=== PATIENT | male | born 1955 | race Hispanic/Latino ===

== ENCOUNTER 2018-10-07 07:48 | Observation (INO) | payer BC, OTHER ==
[2018-10-07] MEDS ORDERED: Aspirin 325 MG TAB ONE (08:20)
[2018-10-07] MEDS ORDERED: Nitroglycerin 0.4 MG TAB 1 EACH ONE (08:20)
[2018-10-07 08:24] LABS: #Eosinphils 0.2 thou/uL (0.0-0.7); #Lymphocytes 1.8 thou/uL (1.20-3.40); #Monocytes 0.6 thou/uL (0.11-0.59); #Neutrophils 3.5 thou/uL (1.40-6.50); %Basophils 0.8 % (0.0-1.0); %Eosinophils 3.6 % (0.0-10.0); %Lymphocytes 28.9 % (21.0-51.0); %Monocytes 10.3 % (0.0-10.0); %Neutrophils 56.4 % (42.0-75.0); Hemoglobin 15.8 g/dL (14.0-18.0); Mean Corpuscular HGB CONC 35.5 g/dL (32.0-36.0); Mean Corpuscular Hemoglobin 32.1 pg (27.0-31.0); Mean Corpuscular Volume 90.5 fL (78.0-98.0); Mean Platelet Volume 7.4 fL (7.4-10.4); Platelet Count 186 thou/uL (130-400); RBC Distribution Width 11.9 % (11.5-14.5); Red Blood Cell (RBC) Count 4.91 mill/uL (4.70-6.10); White Blood Cell (WBC) Count 6.1 thou/uL (4.8-10.8)
[2018-10-07 08:45] LABS: ALT (SGPT) 26 U/L (8-55); AST (SGOT) 16 U/L (5-34); Albumin 4.1 g/dL (3.4-4.8); Alkaline Phosphatase 78 U/L (40-150); Anion Gap 14 mmol/L (10-20); BUN (Urea Nitrogen) 13 mg/dL (8.4-25.7); Bilirubin, Total 1.1 mg/dL (0.2-1.2); CK (CPK) 227 U/L (30-200); Calc. Creatinine Clearance 0 mL/min (70-130); Calcium 9.2 mg/dL (7.8-10.44); Carbon Dioxide 23 mmol/L (23-31); Chloride 105 mmol/L (98-107); Estimated GFR-MDRD 73; Globulin 2.9 g/dL (2.4-3.5); Glucose 235 mg/dL (80-115); Lipase 41 U/L (8-78); Potassium 3.9 mmol/L (3.5-5.1); Sodium 138 mmol/L (136-145)
--- NOTE | 2018-10-07 08:58 | RAD ---
PORTABLE CHEST: HISTORY: Chest pain. COMPARISON: 06/18/2013. FINDINGS: The lungs are clear. Heart and mediastinum unremarkable. Vascular markings normal. IMPRESSION: No acute finding. POS: [facility]
[2018-10-07 12:44] LABS: Troponin I Less than 0.010 ng/mL (< 0.028)
[2018-10-07] MEDS ORDERED: Acetaminophen 500 MG TAB ONE (14:55)
[2018-10-07] MEDS ORDERED: Ketorolac Tromethamine 30 MG/ML VIAL ONE (15:26)
[2018-10-07 15:30] LABS: Troponin I Less than 0.010 ng/mL (< 0.028)
[2018-10-07] MEDS ORDERED: Acetaminophen 325 MG TAB PO PRN (16:47)
--- NOTE | 2018-10-07 17:21 | HP ---
CHIEF COMPLAINT: Chest pain, neck pain, and numbness in his left hand. HISTORY OF PRESENT ILLNESS: The patient is a 63-year-old male, who had sudden onset of chest pain which was radiating to his neck and down to his left upper extremity to the hand. He had some shortness of breath when this happened. He denied any clammy skin. He denied any nausea, vomiting, but he noticed that he vomited couple of times the day before this happened. He did not have any diarrhea or abdominal pain. There was no any cough. Apparently, he was seen in Dr. Dimas's office after he had something which was called TIA, at least what he knows at [facility] and at Dr. Dimas's office he had echocardiogram done and he was supposed to have the stress test done upcoming Friday, but he got sick and came to the emergency room for further evaluation of his problem. His PCP is Dr. Amezcua and surrogate decision maker is the patient's . PAST MEDICAL HISTORY: Positive for; 1. Hypertension. 2. Diabetes mellitus. 3. Hypothyroidism. 4. Questionable TIA. PAST SURGICAL HISTORY: None. MEDICATIONS: 1. Metformin. 2. Plavix. 3. Levothyroxine. 4. Aspirin. 5. Vascepa. 6. Atorvastatin. 7. Losartan. FAMILY HISTORY: Father had sepsis and at the age of 88. Mother is still alive. She has liver problems and she had CVA. SOCIAL HISTORY: He drinks beer 6 pack over the weekend. He smokes few cigarettes per week. He does not use any illicit drugs. ALLERGIES: HE IS NOT ALLERGIC TO ANYTHING. NOW HE COMPLAINS ABOUT SOME HEADACHE AND APPARENTLY HIS BLOOD PRESSURE WENT DOWN SIGNIFICANTLY AFTER HE RECEIVED TWO NITROGLYCERINS IN THE EMERGENCY ROOM. REVIEW OF SYSTEMS: He has occasional headaches on and off. He has no other complaints except for those which are mentioned in the HPI. PHYSICAL EXAMINATION: VITAL SIGNS: Blood pressure is 111/77, pulse is 68, respiratory rate is 16, O2 saturation is 95% on room air. HEENT: His head is atraumatic and normocephalic. Eyes are PERRLA. Sclerae are nonicteric. Oral mucosa is moist. NECK: Supple. LUNGS: Clear. HEART: S1 and S2 normal. No S3. No S4. No any murmur. ABDOMEN: Soft, nontender, nondistended. EXTREMITIES: No clubbing, cyanosis, or edema. NEUROLOGICAL: He is alert and oriented x4. There is no any motor or sensory deficits. Cranial nerves are intact grossly. SKIN: No rash or erythema. LABORATORY DATA: Normal CBC. Normal chemistry except for glucose which is 235 and Two levels of troponin I within normal limits. The rest of chemistry is within home. DIAGNOSTIC DATA: EKG personally reviewed by me showed a normal saline. No ischemia. Chest x-ray, no acute cardiopulmonary changes. IMPRESSION: 1. Chest pain, rule out acute coronary syndrome. 2. Diabetes mellitus. 3. Hypertension. 4. Questionable transient ischemic attack recently. 5. Hyperlipidemia. PLAN: Admission for observation. Condition is fair. Activity, bedrest and bathroom privileges. IV Hep-Lock. Aspirin 325 mg once a day. Continue his home medications. Exercise Cardiolite stress test and obtain echocardiogram results from Dr. Dimas since this was just done recently. We will start him on DVT prophylaxis with SCDs and Lovenox. Job ID: [id number]
[2018-10-07 17:53] VITALS: BMI 33.5
[2018-10-07] MEDS ORDERED: Melatonin 3 MG TAB PO PRN (19:41)
[2018-10-07] MEDS ORDERED: Calcium Carbonate 500 MG ChewTAB PO PRN (19:41)
[2018-10-08 05:41] LABS: #Eosinphils 0.2 thou/uL (0.0-0.7); #Monocytes 0.5 thou/uL (0.11-0.59); #Neutrophils 2.8 thou/uL (1.40-6.50); %Basophils 0.7 % (0.0-1.0); %Eosinophils 4.1 % (0.0-10.0); %Lymphocytes 36.1 % (21.0-51.0); %Monocytes 8.6 % (0.0-10.0); %Neutrophils 50.6 % (42.0-75.0); Hemoglobin 15.3 g/dL (14.0-18.0); Mean Corpuscular HGB CONC 35.2 g/dL (32.0-36.0); Mean Corpuscular Hemoglobin 32.4 pg (27.0-31.0); Mean Corpuscular Volume 92.3 fL (78.0-98.0); Mean Platelet Volume 7.4 fL (7.4-10.4); Platelet Count 155 thou/uL (130-400); RBC Distribution Width 11.9 % (11.5-14.5); Red Blood Cell (RBC) Count 4.72 mill/uL (4.70-6.10); White Blood Cell (WBC) Count 5.5 thou/uL (4.8-10.8)
[2018-10-08 06:08] LABS: Anion Gap 7 mmol/L (10-20); BUN (Urea Nitrogen) 19 mg/dL (8.4-25.7); Calc. Creatinine Clearance 95 mL/min (70-130); Calcium 9.4 mg/dL (7.8-10.44); Carbon Dioxide 30 mmol/L (23-31); Chloride 106 mmol/L (98-107); Estimated GFR-MDRD 75; Glucose 164 mg/dL (80-115); Potassium 3.8 mmol/L (3.5-5.1); Sodium 139 mmol/L (136-145)
[2018-10-08] MEDS ORDERED: Aspirin 325 MG TAB PO SCH (09:00)
[2018-10-08] MEDS ORDERED: Atorvastatin Calcium 10 MG TAB PO SCH (09:00)
[2018-10-08] MEDS ORDERED: Enoxaparin Sodium 40 MG/0.4 ML SYRINGE SC SCH (09:00)
[2018-10-08] MEDS ORDERED: Clopidogrel Bisulfate 75 MG TAB PO SCH (09:00)
[2018-10-08] MEDS ORDERED: Losartan 25 MG TAB PO SCH (09:00)
[2018-10-08 15:57] VITALS: BP 123/63; TEMP 97.4
--- NOTE | 2018-10-08 16:59 | NM ---
Radionucleotide stress and rest myocardial perfusion scan with CT attenuation correction and SPECT im aging left ventricular wall motion evaluation and ejection fraction. HISTORY: Chest pain. FINDINGS: Mirza protocol. Total test time 7:00. Maximum heart rate 141 bpm. There is heterogeneous up take of radiotracer throughout the left ventricular myocardium on the stress and rest images. No focal perfusion defect or reversibility. QGS analysis of gated SPECT images shows no focal wall motion abnormalities. Left ventricular ejectio n fraction calculated at 60%. IMPRESSION: Normal myocardial perfusion scan. No evidence of ischemia. Normal LVEF.
[2018-10-09] MEDS ORDERED: Levothyroxine Sodium 125 MCG TAB PO SCH (06:00)
--- NOTE | 2018-10-09 06:05 | DIS ---
DATE OF ADMISSION: 10/07/2018 DATE OF DISCHARGE: 10/08/2018 DIAGNOSES AT THE TIME OF DISCHARGE: 1. Chest pain, acute coronary syndrome was ruled out with negative EKG, negative troponins x3 and negative stress test in both parts, nuclear stress test and exercise stress test. 2. Hypertension. 3. Hyperlipidemia. 4. Mild diastolic dysfunction with LVEF estimated at 57% on echo and 60% on last nuclear stress test. 5. Diabetes mellitus type 2. 6. Hypothyroidism. HOSPITAL COURSE: The patient is a 63-year-old male, who had sudden onset of chest pain which was radiating to his neck and left upper extremity. He did not get clammy. He denied any nausea, vomiting, or shortness of breath. Apparently, he was seen by Dr. Dimas recently and he was scheduled for stress test in the next few days. His PCP, Dr. Amezcua, just retired and he is looking for another PCP. At the time of emergency room visits, his labs showed normal CBC, normal chemistry except for glucose which was 235. Two levels of troponin I were within normal limits. The rest of chemistry was within normal limits. EKG showed normal sinus rhythm, no ischemia. Chest x-ray did not show any acute cardiopulmonary changes. The patient underwent two part stress test, which was exercise and nuclear scan, both tests were negative. He is doing well. His blood pressure is 123/63, temperature 97.4, pulse is 72, respirations 14, O2 saturation is 96% on room air. He was seen and examined before his discharge. He still has some discomfort in his left upper extremity and in the neck, which is most likely radiculopathy and he will need some additional testing on his neck, probably with MRI if this does not get much better. Yesterday, he received one dose of Toradol IV in the emergency room, which helped his pain in the neck and left upper extremity tremendously. He is discharged home in good condition. ACTIVITY: As tolerated. DIET: 2000 calories ADA diet. FOLLOWUP: He will follow up with his new primary care physician in a week or so, and he will continue with Dr. Dimas as needed. Job ID: [id number]
== END 2018-10-08 17:48 | disposition home or self-care (01) ==
LOC: ERS 07:48 → ERHOLD 11:28 → 2SW 17:32
PROVIDERS: ADMIT Internal Medicine; ATTEND Internal Medicine
DX: R07.9 Chest pain, unspecified (principal); R20.0 Anesthesia of skin; M54.2 Cervicalgia; I10 Essential (primary) hypertension; E11.9 Type 2 diabetes mellitus without complications; E03.9 Hypothyroidism, unspecified; E78.5 Hyperlipidemia, unspecified; F17.210 Nicotine dependence, cigarettes, uncomplicated; Z79.82 Long term (current) use of aspirin; Z79.84 Long term (current) use of oral hypoglycemic drugs; Z79.899 Other long term (current) drug therapy
CPT/HCPCS: 36415; 36416; 71045; 78452; 80048; 80053; 82550; 83690; 84484; 85025; 93017; 94760; 96372; 96374; A9500; G0378; J1650; J1885

== ENCOUNTER 2019-05-05 14:31 | Inpatient (IN) | payer OTHER ==
[2019-05-05 15:00] LABS: #Eosinphils 0.2 thou/uL (0.0-0.7); #Lymphocytes 1.5 thou/uL (1.20-3.40); #Monocytes 0.5 thou/uL (0.11-0.59); #Neutrophils 2.1 thou/uL (1.40-6.50); %Eosinophils 4.1 % (0.0-10.0); %Lymphocytes 34.6 % (21.0-51.0); %Monocytes 11.2 % (0.0-10.0); %Neutrophils 49.1 % (42.0-75.0); Hemoglobin 16.6 g/dL (14.0-18.0); Mean Corpuscular HGB CONC 35.1 g/dL (32.0-36.0); Mean Corpuscular Hemoglobin 31.7 pg (27.0-31.0); Mean Corpuscular Volume 90.4 fL (78.0-98.0); Mean Platelet Volume 6.8 fL (7.4-10.4); Platelet Count 219 thou/uL (130-400); RBC Distribution Width 11.9 % (11.5-14.5); Red Blood Cell (RBC) Count 5.23 mill/uL (4.70-6.10); White Blood Cell (WBC) Count 4.2 thou/uL (4.8-10.8)
[2019-05-05] MEDS ORDERED: Acetaminophen 500 MG TAB ONE (15:09)
[2019-05-05 15:11] LABS: PTT 34.4 SEC (22.9-36.1); Prothrombin Time 13.6 SEC (12.0-14.7)
[2019-05-05 15:22] LABS: ALT (SGPT) 22 U/L (8-55); AST (SGOT) 18 U/L (5-34); Albumin 4.5 g/dL (3.4-4.8); Alkaline Phosphatase 72 U/L (40-110); Anion Gap 10 mmol/L (10-20); BUN (Urea Nitrogen) 12 mg/dL (8.4-25.7); Bilirubin, Total 1.2 mg/dL (0.2-1.2); Calc. Creatinine Clearance 0 mL/min (70-130); Calcium 9.4 mg/dL (7.8-10.44); Carbon Dioxide 31 mmol/L (23-31); Chloride 103 mmol/L (98-107); Estimated GFR-MDRD 61; Globulin 3.2 g/dL (2.4-3.5); Glucose 173 mg/dL (80-115); Potassium 3.9 mmol/L (3.5-5.1); Protein, Total 7.7 g/dL (5.8-8.1); Sodium 140 mmol/L (136-145)
--- NOTE | 2019-05-05 15:22 | RAD ---
Chest one view HISTORY: Chest pain. COMPARISON: 10/07/2018. FINDINGS: Cardiac silhouette is magnified by projection. Pulmonary vasculature is unremarkable. Media stinum is midline. No lobar consolidation or evidence of pneumothorax. There are degenerative changes of each shoulder. discovery guide leads overlie the chest. IMPRESSION: No active cardiopulmonary abnormalities are demonstrated.
[2019-05-05] MEDS ORDERED: Aspirin Chewable 81 MG TAB ONE (15:35)
--- NOTE | 2019-05-05 16:38 | PDOC.FPRHP ---
- History of Present Illness Chief Complaint: Chest Pain History of Present Illness: 64yo male with HTN, HLD, hx of TIA, DMII uncontrolled, and tobacco abuse who presents with left substernal chest pain that started at 2pm. Constant but worse at times, not worse with exertion. Radiates to left neck and arm. Denies associated diaphoresis and nausea but has had approx. 3 episodes of vomiting per day for last couple months. Reports he has had EGD for this and it is likely acid reflux. Business Strategist is Dr Dimas at the [facility]. He was hospitalized there one year ago per patient for "stroke" that resolved, no deficits. ED Course: Tylenol 1g, ASA 324mg. EKG and CXR unremarkable. Initial Trop neg. VSS - Allergies/Adverse Reactions Allergies Allergy/AdvReac Type Severity Reaction Status Date / Time No Known Allergies Allergy Verified 05/05/19 19:25 - Home Medications Medication Instructions Recorded Confirmed Type Atorvastatin Calcium [Lipitor] 10 mg PO HS 10/07/18 05/05/19 History Clopidogrel Bisulfate [Clopidogrel] 75 mg PO DAILY 10/07/18 05/05/19 History Icosapent Ethyl [Vascepa] 2 gm PO BID-WM 10/07/18 05/05/19 History Levothyroxine Sodium 125 mcg PO QAM 10/07/18 05/05/19 History Losartan Potassium 25 mg PO DAILY 10/07/18 05/05/19 History metFORMIN XR [Glucophage XR] 1,000 mg PO HS 10/07/18 05/05/19 History Pantoprazole [Protonix] 40 mg PO DAILY 05/05/19 05/05/19 History - History PMHx: HTN, HLD, Hx of TIA, DMII, Hypothyroidism PSHx: Denies FHx: Mother: [place], CVA. FAther: DMII Social: Has smoked 5 cigarettes per day since teenager. Drinks 6 beers every 3 days. Denies drug use. Lives with . Independent with ADLS. - Review of Systems General: denies: fever/chills, fatigue Eyes: denies: eye pain, vision changes ENT: denies: nasal congestion, rhinorrhea Respiratory: denies: cough, congestion, shortness of breath Cardiovascular: reports: chest pain. denies: edema Gastrointestinal: reports: vomiting. denies: nausea, diarrhea, abdominal pain Genitourinary: denies: dysuria Skin: denies: rashes, lesions Musculoskeletal: denies: tenderness, swelling Neurological: denies: syncope, weakness - Vital signs BP: HR: 60 RR: 20 Tmax: 98.6 Pox: 94% on RA Wt: 86kg - Physical Exam Constitutional: NAD, awake, alert and oriented, well developed HEENT: normocephalic and atraumatic, conjunctiva clear, grossly normal hearing, MMM, oropharynx clear Neck: supple, trachea midline Heart: RRR, no murmurs/rubs/gallops, pulses present, no edema Lungs: CTAB, no respiratory distress, good air movement, no wheezing Abdomen: soft -Abdomen: mild RUQ tenderness. No rebound or rigidity Musculoskeletal: normal structure, normal tone Neurological: no focal deficit Skin: no rash/lesions, capillary refill <2 seconds Heme/Lymphatic: no unusual bruising or bleeding Psychiatric: normal mood and affect, good judgment and insight FMR H&P: Results - Labs Result Diagrams: 05/05/19 14:47 05/05/19 14:47 Lab results: WBC 4.2 thou/uL (4.8-10.8) L 05/05/19 14:47 Hgb 16.6 g/dL (14.0-18.0) 05/05/19 14:47 Hct 47.3 % (42.0-52.0) 05/05/19 14:47 MCV 90.4 fL (78.0-98.0) 05/05/19 14:47 Plt Count 219 thou/uL (130-400) 05/05/19 14:47 Neutrophils % 49.1 % (42.0-75.0) 05/05/19 14:47 Sodium 140 mmol/L (136-145) 05/05/19 14:47 Potassium 3.9 mmol/L (3.5-5.1) 05/05/19 14:47 Chloride 103 mmol/L (98-107) 05/05/19 14:47 Carbon Dioxide 31 mmol/L (23-31) 05/05/19 14:47 BUN 12 mg/dL (8.4-25.7) 05/05/19 14:47 Creatinine 1.21 mg/dL (0.7-1.3) 05/05/19 14:47 Glucose 173 mg/dL (80-115) H 05/05/19 14:47 Calcium 9.4 mg/dL (7.8-10.44) 05/05/19 14:47 Total Bilirubin 1.2 mg/dL (0.2-1.2) 05/05/19 14:47 AST 18 U/L (5-34) 05/05/19 14:47 ALT 22 U/L (8-55) 05/05/19 14:47 Alkaline Phosphatase 72 U/L (40-110) 05/05/19 14:47 Serum Total Protein 7.7 g/dL (5.8-8.1) 05/05/19 14:47 Albumin 4.5 g/dL (3.4-4.8) 05/05/19 14:47 - EKG Interpretation EKG: NSR, No ST depression/elevation - Radiology Interpretation Chest x-ray Status: report reviewed by me Additional comment: No acute Abnormalities FMR H&P: A/P - Plan Atypical Chest Pain - s/p ASA, will give Nitro as he still has 11/07 pain - EKG no ST segment changes. Trops neg x1. CXR nml - HEART score: 4 - Stress test 10/08/[address] Dimas. - Continue ASA and home meds - Will admit to tele obs, trend trops and make NPO at midnight for stress test tomorrow DMII - HH, CC diet until NPO. ACHS accuchecks. - Continue home meds. Hypoglycemic protocol Hypothyroidism - Continue home meds HLD - Continue home meds HTN, controlled - Continue home meds Tobacco Abuse - Nicotine patch PRN - Encourage Cessation Code Status: FULL DVT ppx: Lovenox PCP: [facility]- Previously Dr Amezcua, however he retired FMR H&P: Upper Level - Plan Date/Time: 05/05/19 1621 I, [], have evaluated this patient and agree with findings/plan as outlined by internal grinder tender resident. Pertinent changes/additions are listed here. Addendum - Attending - Attending Attestation Date/Time: 05/05/192041 I personally evaluated the patient and discussed the management with Dr. Hoffmann. I agree with the History, Examination, Assessment and Plan documented above with any addition or exceptions noted below. On my exam his let sided chest pain is reproducible with palpation of anterior chest wall. Has srtange sensation of left body numbness when this left chest pain is activated by palpation. Due to his risks, stress test is planned if trops are negative.
[2019-05-05] MEDS ORDERED: Nitroglycerin 0.4 MG TAB 1 EACH ONE (16:51)
[2019-05-05] MEDS ORDERED: HumaLOG 300 UNITS/3 ML VIAL SC PRN (17:42)
[2019-05-05] MEDS ORDERED: Dextrose 5% in Water 1,000 ML IV PRN (17:42)
[2019-05-05] MEDS ORDERED: Ondansetron ODT 4 MG TAB PO PRN (17:42)
[2019-05-05] MEDS ORDERED: Dextrose 50% Abboject 50 ML SYRINGE SLOW IVP PRN (17:42)
[2019-05-05] MEDS ORDERED: Nicotine 14 MG PATCH TD PRN (17:42)
[2019-05-05 17:57] LABS: Hemoglobin A1c 7.9 % (4.0-6.0)
[2019-05-05 17:58] VITALS: BMI 31.9
[2019-05-05 18:31] LABS: Troponin I Less than 0.010 ng/mL (< 0.028)
[2019-05-05] MEDS: Acetaminophen 325 MG TAB PO PRN (19:59)
[2019-05-05] MEDS ORDERED: Cyclobenzaprine 10 MG TAB PO SCH (20:00)
[2019-05-05 21:10] LABS: Troponin I Less than 0.010 ng/mL (< 0.028)
[2019-05-05] MEDS: Atorvastatin Calcium 10 MG TAB PO SCH (21:10)
[2019-05-05] MEDS: metFORMIN XR 500 MG TAB PO SCH (21:11)
[2019-05-06 01:10] LABS: Troponin I Less than 0.010 ng/mL (< 0.028)
[2019-05-06 05:13] LABS: Cardiac Risk 4.2 (Less than 4.5)
[2019-05-06] MEDS: Levothyroxine Sodium 125 MCG TAB PO SCH (06:13)
--- NOTE | 2019-05-06 06:34 | PDOC.FM ---
- Subjective Subjective: Overnight had episode of chest pain reproducible with palpation, given Tylenol and Flexeril. He reports this resolved pain. Denies SOB, palpitations, pain with exertion. Currently NPO for stress test. - Objective MAR Reviewed: Yes Vital Signs & Weight: Vital Signs (12 hours) Temp Pulse Resp BP Pulse Ox 05/06/19 04:10 97.9 F 60 15 107/70 95 05/05/19 23:35 97.8 F 58 L 16 102/65 93 L 05/05/19 20:07 98.7 F 64 16 119/65 94 L Weight Weight 84.504 kg I&O: 05/04/19 05/05/19 05/06/19 06:59 06:59 06:59 Intake Total 480 Balance 480 Result Diagrams: 05/05/19 14:47 05/05/19 14:47 Phys Exam - Physical Examination Constitutional: NAD HEENT: moist MMs Neck: supple Respiratory: no wheezing, clear to auscultation bilateral Cardiovascular: RRR, no significant murmur Pain reproducible to palpation left substernal area Gastrointestinal: soft, non-tender Musculoskeletal: no edema Neurological: moves all 4 limbs Psychiatric: normal affect, A&O x 3 Skin: normal turgor Dx/Plan - Plan Plan: Atypical Chest Pain - EKG no ST segment changes. Trops neg x4. CXR nml - HEART score: 4 - Stress test 10/08/[address] Dimas. - Continue ASA and home meds - NPO for stress test DMII - Continue home meds. Hypoglycemic protocol Hypothyroidism - Continue home meds HLD - Continue home meds HTN, controlled - Continue home meds Tobacco Abuse - Nicotine patch PRN - Encourage Cessation Code Status: FULL DVT ppx: Lovenox PCP: [facility]- Previously Dr Amezcua, however he retired Addendum - Attending - Attending Attestation Date/Time: 05/06/19 1015 I personally evaluated the patient and discussed the management with Dr. Hoffmann. I agree with the History, Examination, Assessment and Plan documented above with any addition or exceptions noted below. Nursing stated that patient started having worsening left sided numbness overnight. Per resident, was initial down left arm and in left jaw which was associated with chest pain. On my exam CN 2-12 intact with exception of left sensory component of CN5 across all branches. Strength 5/5 in all extremities. Sensation decreased on left per patient. Will order stat CT brain and CTA Head and neck. MRI brain ordered as well. If he appears to have had a stroke on CT, will hold NM stress test today and consult stroke team. Disposition pending evaluation but will likely need 1 additional day in the hospital.
[2019-05-06] MEDS: Losartan 25 MG TAB PO SCH (08:33)
[2019-05-06] MEDS: Acetaminophen 325 MG TAB PO PRN (08:33)
[2019-05-06] MEDS: Enoxaparin Sodium 40 MG/0.4 ML SYRINGE SC SCH ×2 (08:33→08:35)
[2019-05-06] MEDS: Clopidogrel Bisulfate 75 MG TAB PO SCH (08:33)
[2019-05-06] MEDS: Aspirin 325 mg Enteric Coated Tablet PO SCH (08:33)
[2019-05-06] MEDS: Icosapent Ethyl 1 GM CAPSULE PO SCH ×2 (08:33→17:12)
--- NOTE | 2019-05-06 10:13 | PDOC.EVN ---
Event Note - Event Note Event Note: Patient complaining of left sided numbness. Neuro exam normal with exception of sensation to light touch diminished on left face, UE and LE. CN 2-12 grossly intact. Will pursue stroke work up with STAT CT, CTA head and neck and MRI. NIH 2.
--- NOTE | 2019-05-06 11:31 | CT ---
EXAM: CT ANGIOGRAM OF THE HEAD AND NECK INDICATION: Stroke. Left-sided weakness that started 2 days ago. COMPARISON: 08/11/2008 TECHNIQUE: CT angiogram of the head and neck are performed in the axial plane. Three-dimensional refo rmatted images are submitted for interpretation. FINDINGS: NONCONTRAST HEAD CT: No parenchymal hemorrhage. No extra-axial hematoma. No midline shift. Basilar cisterns are patent. Brain volume, age-appropriate. Cortical dumont-white matter differentiatio n is preserved. No hydrocephalus. Intact calvarium. Right maxillary sinus disease. CTA OF THE HEAD WITH AND WITHOUT CONTRAST: POSTCONTRAST CT OF BRAIN: Pathologic enhancement: No pathologic enhancement the brain. Postcontrast soft tissue neck CT: Sinuses: Right maxillary sinus disease.. Orbits: Bilateral ocular lens implants are appropriately located. Both globes are intact. Retrobulbar fat is preserved. Symmetric attenuation of the optic nerves and ocular rectus muscles. Salivary glands:Symmetric attenuation of the parotid and submandibular glands. Thyroid gland: Unremarkable Lymph nodes: No evidence of lymphadenopathy by size criteria. Paraspinal muscles: Symmetric attenuation of the sternocleidomastoid muscles. Appropriate attenuation of the paraspinal muscles. Cervical spine:Vertebral body height is maintained. No fracture. Significant anterior osteophyte form ation at C4-C5 and C5-C6. There are varying degrees of significant central canal stenosis and significant neural foraminal narrowing, on the basis of degenerative change. Limited evaluation by sam edwards. Upper mediastinum and lung apices: Chronic lung parenchymal changes. Small bleb in the left lung apex is noted CTA OF THE NECK WITH CONTRAST: Aorta: Appropriate enhancement and luminal diameter. Atherosclerosis is identified Right carotid artery: Right carotid artery origin has appropriate enhancement and luminal diameter. T he common carotid artery, carotid bifurcation and internal carotid artery have appropriate enhancement and luminal diameter. There is no significant stenosis based upon NASCET criteria. Left carotid: Left carotid artery origin has appropriate enhancement and luminal diameter. The common carotid artery, carotid bifurcation and internal carotid artery have appropriate enhancement and luminal diameter. There is no significant stenosis based upon NASCET criteria Subclavian arteries:Mild narrowing along the proximal right subclavian artery due to calcified and no ncalcified plaque. Otherwise, subclavian arteries are unremarkable. Vertebral arteries:Vertebral arteries are patent throughout their course in the neck and are essentia lly codominant. CTA OF THE BRAIN: Intracranial internal carotid arteries:Appropriate enhancement and luminal diameter. Minimal atherosc lerosis in both cavernous segments and paraclinoid segments. Anterior circulation: Symmetric enhancement and luminal diameter the A1 segments, proximal A2 segment s, M1 segments and proximal MCA branches. Intracranial vertebral arteries: Appropriate enhancement and luminal diameter. Bilateral PICA artery origins are unremarkable. Posterior circulation: Both vertebral arteries supply a normal caliber basilar artery. There is appro priate and essentially symmetric enhancement/luminal diameter of P1 segment IMPRESSION: 1. No hemodynamically significant stenosis, occlusion or aneurysmal formation. 2. Additional incidental findings as above. Transcribed Date/Time: 05/06/2019 12:16 PM
[2019-05-06] MEDS ORDERED: Iopamidol 370 76% 100 ML VIAL ONE (13:14)
--- NOTE | 2019-05-06 14:42 | MRI ---
MRI BRAIN WITHOUT CONTRAST: HISTORY: Left-sided weakness that started 2 days ago. Stroke FINDINGS: No restricted diffusion is seen. There are few foci of T2 prolongation in the periventricular white m atter, consistent with mild chronic small vessel ischemic disease. The ventricular size is appropriate and the basilar cisterns are patent. No evidence of acute infarct, hemorrhage, midline shift or abnormal extra-axial fluid collections is seen. There is mucosal disease in the paranasal sinuses. IMPRESSION: No evidence of acute intracranial process.
[2019-05-06 15:20] LABS: Magnesium 1.9 mg/dL (1.6-2.6); Phosphorus 3.1 mg/dL (2.3-4.7)
--- NOTE | 2019-05-06 17:02 | CON ---
DATE OF CONSULTATION: 05/06/2019 REASON FOR CONSULTATION: Chest pain. HISTORY OF PRESENT ILLNESS: Mr. Baeza is a very pleasant 64-year-old gentleman, who comes to the hospital for chest pain. He states he has episodes of left-sided chest pain that radiated to the left arm and the left leg. He feels his left leg becomes numb and weak when he has a chest pain and then the pain lasts about 30 minutes and it goes away on its own and everything resolves. His left arm and leg remain tingly after the episode has resolved. He has seen Dr. Dimas in the past at [facility]. He follows him for palpitations from what he can tell me. He denies ever having had a heart catheterization. He does give a history of possibly having a stroke in the past and all his deficits improved. PAST MEDICAL HISTORY: 1. Hypertension. 2. Hyperlipidemia. 3. History of TIAs. 4. Type 2 diabetes. 5. Hypothyroidism. PAST SURGICAL HISTORY: None. FAMILY HISTORY: Mother with NE in her 60s and CVA. Father with diabetes. SOCIAL HISTORY: He smokes 5 cigarettes a day for many years now. Drinks about a whole 6-pack that last him 3 days. No drug use. OUTPATIENT MEDICATIONS: 1. Atorvastatin 10 mg at bedtime. 2. Plavix 75 mg a day. 3. Vascepa 2 g p.o. b.i.d. 4. Levothyroxine 125 mcg a day. 5. Losartan 25 mg a day. 6. Metformin. 7. Pantoprazole 40 mg a day. ALLERGIES: NO KNOWN DRUG ALLERGIES. REVIEW OF SYSTEMS: A 12-point review of systems was done and is all negative unless stated in the history of present illness. PHYSICAL EXAMINATION: VITAL SIGNS: Temperature 97.8, pulse 64, respiratory rate 18, sating 99% on room air, blood pressure 106/63. GENERAL: Awake, alert oriented x3. No distress. HEENT: Normocephalic, atraumatic. NECK: Supple. LUNGS: Clear. CARDIOVASCULAR: S1 and S2. No S3 or S4. No murmurs. ABDOMEN: Soft. Positive bowel sounds. EXTREMITIES: No edema. SKIN: Warm and dry. NEUROLOGICAL: No focal neurologic deficits at the time of my evaluation. LABORATORY DATA: Laboratory work was reviewed. CBC with a white count of 4, hemoglobin 16, hematocrit of 47, and platelet count of 219. Coags, INR 1.0. Chemistries were unremarkable with a sodium of 140, potassium 3.9, chloride 103, carbon dioxide of 31, GFR was 61 with a creatinine 1.21. Troponin was undetectable x4. 7.9. Albumin of 4.5. EKG was reviewed. No ischemic changes. MRI of the brain is pending at the time of my dictation. ASSESSMENT: 1. Chest pain. 2. Type 2 diabetes. 3. Hypertension. 4. Symptoms concerning for possibly a transient ischemic attack or stroke. PLAN: He will undergo MRI of the brain. If this MRI is negative for an acute stroke, we will undergo heart catheterization to make sure that his chest pain is not related to coronary artery disease. His pain is atypical. However, he has had a negative stress test here within the last year. He tells me he has never had a heart catheterization otherwise. We spoke at length about the risks and benefits of the procedure. Risks included, but not limited to stroke, NE, , bleeding, need for blood transfusion, limb loss, organ loss, renal dysfunction from the contrast. He understands, verbalized understanding of this and agrees to proceed. Further recommendations per results of coronary angiogram as long as the MRI of the brain is unremarkable. Job ID: [id number]
[2019-05-06] MEDS: Atorvastatin Calcium 10 MG TAB PO SCH (21:07)
[2019-05-06] MEDS: metFORMIN XR 500 MG TAB PO SCH (21:07)
[2019-05-06] MEDS ORDERED: traMADol HCl 50 MG TAB PO SCH (21:15)
[2019-05-07] MEDS: Aspirin 325 mg Enteric Coated Tablet PO SCH (05:16)
[2019-05-07] MEDS: Levothyroxine Sodium 125 MCG TAB PO SCH (05:16)
[2019-05-07] MEDS: Losartan 25 MG TAB PO SCH (05:16)
[2019-05-07] MEDS: Clopidogrel Bisulfate 75 MG TAB PO SCH (05:16)
[2019-05-07] MEDS: Icosapent Ethyl 1 GM CAPSULE PO SCH ×2 (05:17→18:45)
[2019-05-07] MEDS: Enoxaparin Sodium 40 MG/0.4 ML SYRINGE SC SCH (05:18)
--- NOTE | 2019-05-07 06:36 | PDOC.FM ---
- Subjective Subjective: Denies chest pain, shortness of breath. No overnight events. Does endorse some left sided numbness but improved from yesterday. NPO for cath this AM. - Objective MAR Reviewed: Yes Vital Signs & Weight: Vital Signs (12 hours) Temp Pulse Resp BP BP Pulse Ox 05/07/19 05:00 97.9 F 76 16 109/63 96 05/06/19 23:53 97.7 F 66 16 104/57 L 95 05/06/19 21:05 74 123/75 05/06/19 19:32 97.7 F 67 16 97/67 96 Weight Weight 84.504 kg I&O: 05/05/19 05/06/19 05/07/19 06:59 06:59 06:59 Intake Total 480 870 Balance 480 870 Result Diagrams: 05/05/19 14:47 05/05/19 14:47 Phys Exam - Physical Examination Constitutional: NAD HEENT: moist MMs Neck: supple Respiratory: no wheezing, clear to auscultation bilateral Cardiovascular: RRR, no significant murmur Gastrointestinal: soft, non-tender Musculoskeletal: no edema Neurological: moves all 4 limbs Psychiatric: normal affect, A&O x 3 Skin: normal turgor Dx/Plan - Plan Plan: Atypical Chest Pain - Continue ASA - NPO for Cath this morning Left sided numbness - MRI/CTA neg - Continue plavix HFpEF - Echo 05/06/19 with diastolic dysfunction Code Status: FULL DVT ppx: Lovenox PCP: [facility]- Previously Dr Amezcua, however he retired Addendum - Attending - Attending Attestation Date/Time: 05/07/19 1027 I personally evaluated the patient and discussed the management with Dr. Hoffmann I agree with the History, Examination, Assessment and Plan documented above with any addition or exceptions noted below. Numbness resolving. CVA/TIA evaluation negative. Undergoing cardiac cath and possible PCI. Dispo pending results of cath.
[2019-05-07] MEDS ORDERED: Lidocaine 1% (PF) 30 ML VIAL ONE (08:52)
[2019-05-07] MEDS ORDERED: Heparin (Artline) 1,000 ML ONE (08:52)
[2019-05-07] MEDS ORDERED: Fentanyl 100 MCG/2 ML VIAL ONE (09:19)
[2019-05-07] MEDS ORDERED: Midazolam HCl 2 mg/2 ml Vial ONE (09:19)
[2019-05-07] MEDS ORDERED: Heparin 10,000 UNITS/1 ML VIAL ONE (09:20)
[2019-05-07] MEDS ORDERED: Nitroglycerin 100MG/250ML BOT 250 ML ONE (09:20)
[2019-05-07] MEDS ORDERED: Verapamil 5 MG/2 ML VIAL ONE ×2 (09:20→10:11)
[2019-05-07] MEDS ORDERED: Iopamidol 370 76% 50 ML VIAL FS ONE (09:45)
[2019-05-07] MEDS ORDERED: Iopamidol 370 76% 100 ML VIAL ONE (09:45)
[2019-05-07] MEDS ORDERED: Heparin (Artline) 500 ML ONE (10:20)
[2019-05-07] MEDS ORDERED: TICAGRELOR 90 MG TABLET ONE (10:20)
[2019-05-07] MEDS ORDERED: Nitroglycerin 0.4 MG TAB (25 Tab Bottle) SL PRN (13:44)
[2019-05-07] MEDS ORDERED: Sodium Chloride 0.9% 500 ML IV SCH (14:00)
[2019-05-07] MEDS: Acetaminophen 325 MG TAB PO PRN (16:31)
[2019-05-07] MEDS: Atorvastatin Calcium 10 MG TAB PO SCH (20:15)
[2019-05-07] MEDS: metFORMIN XR 500 MG TAB PO SCH (20:15)
[2019-05-08] MEDS: Levothyroxine Sodium 125 MCG TAB PO SCH (05:42)
[2019-05-08 05:45] LABS: #Lymphocytes 0.7 thou/uL (1.20-3.40); #Monocytes 0.3 thou/uL (0.11-0.59); #Neutrophils 3.6 thou/uL (1.40-6.50); %Basophils 0.3 % (0.0-1.0); %Eosinophils 0.3 % (0.0-10.0); %Lymphocytes 14.5 % (21.0-51.0); %Neutrophils 78.8 % (42.0-75.0); Hemoglobin 14.6 g/dL (14.0-18.0); Mean Corpuscular HGB CONC 36.4 g/dL (32.0-36.0); Mean Corpuscular Hemoglobin 32.8 pg (27.0-31.0); Mean Corpuscular Volume 90.2 fL (78.0-98.0); Mean Platelet Volume 7.2 fL (7.4-10.4); Platelet Count 158 thou/uL (130-400); Red Blood Cell (RBC) Count 4.44 mill/uL (4.70-6.10); White Blood Cell (WBC) Count 4.6 thou/uL (4.8-10.8)
--- NOTE | 2019-05-08 05:54 | PDOC.FM ---
- Subjective Subjective: No overnight events. Eager to go home today. Denies chest pain or shortness of breath. - Objective MAR Reviewed: Yes Vital Signs & Weight: Vital Signs (12 hours) Temp Pulse Resp BP BP Pulse Ox 05/08/19 04:19 98.0 F 76 14 116/61 97 05/07/19 23:59 85 20 121/61 95 05/07/19 20:10 97.9 F 79 15 108/60 96 05/07/19 20:00 96 Weight Weight 84.504 kg I&O: 05/06/19 05/07/19 05/08/19 06:59 06:59 06:59 Intake Total 480 990 480 Output Total 650 Balance 480 990 -170 Result Diagrams: 05/08/19 05:03 05/08/19 05:03 Phys Exam - Physical Examination Constitutional: NAD HEENT: moist MMs Neck: supple Respiratory: no wheezing, clear to auscultation bilateral Cardiovascular: RRR, no significant murmur Gastrointestinal: soft, non-tender Musculoskeletal: no edema Neurological: moves all 4 limbs Psychiatric: normal affect, A&O x 3 Skin: normal turgor Dx/Plan - Plan Plan: CAD s/p Stent - Continue ASA and Plavix - Cath 05/07 with stent placement, awaiting cath report Left sided numbness, on ASA. Hx of TIA vs CVA. - MRI/CTA neg - Continue plavix HFpEF - Echo 05/06/19 with diastolic dysfunction Code Status: FULL DVT ppx: Lovenox PCP: [facility]- Previously Dr Amezcua, however he retired Addendum - Attending - Attending Attestation Date/Time: 05/08/19 1242 I personally evaluated the patient and discussed the management with Dr. Hoffmann. I agree with the History, Examination, Assessment and Plan documented above with any addition or exceptions noted below. Patient feels great. No cp/sob. Plan for dc today if cardiology ok's. DAPT. HI statin. ACEI/BB as indicated.
[2019-05-08 06:01] LABS: ALT (SGPT) 24 U/L (8-55); AST (SGOT) 20 U/L (5-34); Albumin 3.7 g/dL (3.4-4.8); Alkaline Phosphatase 49 U/L (40-110); Anion Gap 11 mmol/L (10-20); BUN (Urea Nitrogen) 12 mg/dL (8.4-25.7); Bilirubin, Total 1.2 mg/dL (0.2-1.2); Calc. Creatinine Clearance 87 mL/min (70-130); Calcium 8.9 mg/dL (7.8-10.44); Carbon Dioxide 26 mmol/L (23-31); Chloride 107 mmol/L (98-107); Estimated GFR-MDRD 72; Globulin 2.6 g/dL (2.4-3.5); Glucose 106 mg/dL (80-115); Potassium 3.7 mmol/L (3.5-5.1); Protein, Total 6.3 g/dL (5.8-8.1); Sodium 140 mmol/L (136-145)
[2019-05-08] MEDS: Clopidogrel Bisulfate 75 MG TAB PO SCH (08:51)
[2019-05-08] MEDS: Losartan 25 MG TAB PO SCH (08:51)
[2019-05-08] MEDS: Icosapent Ethyl 1 GM CAPSULE PO SCH (08:51)
[2019-05-08] MEDS: Enoxaparin Sodium 40 MG/0.4 ML SYRINGE SC SCH (08:53)
[2019-05-08] MEDS ORDERED: Aspirin Chewable 81 MG TAB PO SCH (09:00)
[2019-05-08 11:21] VITALS: TEMP 98
[2019-05-08 12:04] VITALS: BP 140/73
--- NOTE | 2019-05-08 12:44 | PDOC.CPN ---
- Subjective Date: 05/08/19 Time: 12:50 Interval history: Mr. Baeza is feeling well and ready to go home. Denies any chest pain or shortness of breath. His groin site is without swelling or hematoma. Has been walking in the room. No overnight events. - Objective Allergies/Adverse Reactions: Allergies Allergy/AdvReac Type Severity Reaction Status Date / Time No Known Allergies Allergy Verified 05/05/19 19:25 Visit Medications: Current Medications Acetaminophen (Tylenol) 650 mg PO Q4H PRN PRN Reason: Headache/Fever/Mild Pain (1-3) Last Admin: 05/07/19 16:31 Dose: 650 mg Aspirin (Aspirin Chewable) 81 mg PO DAILY [facility] Last Admin: 05/08/19 08:51 Dose: 81 mg Atorvastatin Calcium (Lipitor) 10 mg PO HS [facility] Last Admin: 05/07/19 20:15 Dose: 10 mg Clopidogrel Bisulfate (Plavix) 75 mg PO DAILY [facility] Last Admin: 05/08/19 08:51 Dose: 75 mg Dextrose/Water (Dextrose 50%) 25 gm SLOW IVP PRN PRN PRN Reason: Hypoglycemia Enoxaparin Sodium (Lovenox) 40 mg SC 0900 [facility] Last Admin: 05/08/19 08:53 Dose: 40 mg Glucagon (Glucagon) 1 mg IM PRN PRN PRN Reason: Hypoglycemia Dextrose/Water (D5w) 1,000 mls @ 0 mls/hr IV .Q0M PRN PRN Reason: Hypoglycemia Insulin Human Lispro (Humalog) 0 units SC .MILD SLIDING SCALE PRN PRN Reason: Mild Correctional Scale Levothyroxine Sodium (Synthroid) 125 mcg PO 0600 [facility] Last Admin: 05/08/19 05:42 Dose: 125 mcg Losartan Potassium (Cozaar) 25 mg PO DAILY [facility] Last Admin: 05/08/19 08:51 Dose: 25 mg Metformin HCl (Glucophage Xr) 1,000 mg PO HS [facility] Last Admin: 05/07/19 20:15 Dose: 1,000 mg Metoprolol Succinate (Toprol Xl) 12.5 mg PO DAILY [facility] Last Admin: 05/08/19 08:51 Dose: 12.5 mg Miscellaneous Medication (Vascepa) 2 gm PO BID[facility] Last Admin: 05/08/19 08:51 Dose: 2 gm Nicotine (Nicoderm Patch) 14 mg TD Q24H PRN PRN Reason: Smoking Cessation Nitroglycerin (Nitrostat) 0.4 mg SL Q5MIN PRN PRN Reason: Chest Pain Ondansetron HCl (Zofran Odt) 4 mg PO Q6H PRN PRN Reason: Nausea/Vomiting Pantoprazole Sodium (Protonix) 40 mg PO DAILY [facility] Last Admin: 05/08/19 08:51 Dose: 40 mg Vital Signs & Weight: Vital Signs Temp Pulse Pulse Pulse Resp BP BP 05/08/19 11:58 98 90 140/73 109/63 05/08/19 10:49 98 F 78 18 05/08/19 07:16 98.4 F 73 12 05/08/19 04:19 98.0 F 76 14 BP Pulse Ox Pulse Ox Pulse Ox 05/08/19 11:58 90 L 97 05/08/19 10:49 121/60 94 L 05/08/19 07:16 117/62 96 05/08/19 04:19 116/61 97 Weight 186 lb 4.8 oz - Labs Result Diagrams: 05/08/19 05:03 05/08/19 05:03 Troponin/CKMB Troponin I Less than 0.010 ng/mL (< 0.028) 05/06/19 00:40 - Assessment/Plan Assessment/Plan: 1. CAD-s/p [facility] 05/07 with PCI to D1, ANJEL. Otherwise, mild disease, LCx with 30% lesion ruptured plaque. No anginal symptoms. 2.Chronic diastolic HF-preserved EF. Euvolemic, no exertional symptoms. 3. History of TIA 4. HTN-stable, adequately controlled. 5. Hyperlipidemia 6. Tobacco Abuse Home on ARB, BB, statin, DAPT. Advised importance of complete smoking cessation. Follow-up with Dr. Marcos in 3 weeks. Work excuse given.
--- NOTE | 2019-05-10 00:20 | DIS ---
DATE OF ADMISSION: 05/05/2019 DATE OF DISCHARGE: 05/08/2019 RESIDENT: Reema Hoffmann, PGY-2. ADMITTING ATTENDING: Anshu Sims MD DISCHARGE ATTENDING: Cristian Chapin MD CONSULTS: Cardiology. PROCEDURES: 1. Chest x-ray on 05/05/2019, no acute cardiopulmonary abnormality demonstrated. 2. Cath on 05/07/2019, 70% stenosis of LAD, first diagonal with successful PCI. 3. Brain MRI on 05/06/2019, no evidence of acute intracranial process. PRIMARY DIAGNOSES: 1. Coronary artery disease status post PCI. 2. Left-sided numbness with history of transient ischemic attack versus cerebrovascular accident. 3. Heart failure with preserved ejection fraction. 4. Hypothyroidism. 5. Type 2 diabetes. 6. Hyperlipidemia. 7. Hypertension. 8. Tobacco use disorder. DISCHARGE MEDICATIONS: 1. Tylenol 650 mg q.4 hours p.r.n. 2. Aspirin 81 mg daily. 3. Atorvastatin 10 mg at bedtime. 4. Plavix 75 mg daily. 5. Vascepa 2 g b.i.d. 6. Losartan 25 mg daily. 7. Levothyroxine 125 mcg daily. 8. Metformin 1000 mg at bedtime. 9. Metoprolol succinate 12.5mg daily. 10. Nitrostat 0.4 mg sublingual q.5 minutes p.r.n. 11. Protonix 40 mg daily. DISCONTINUED MEDICATIONS: None. HISTORY OF PRESENT ILLNESS/HOSPITAL COURSE: Mr. Baeza is a 64-year-old male with past medical history of TIA, hypertension, hyperlipidemia, type 2 diabetes, and tobacco abuse, who presented with left substernal chest pain, follows up with Dr. Dimas at the [facility]. In the ED, he was given Tylenol 1 g, aspirin 324 mg. EKG was performed which was unremarkable. Chest x-ray normal. Troponins were negative x4. Lipid panel; elevated triglycerides 175. A1c 7.9. HEART score 4. He underwent cardiac catheterization with Dr. Marcos and had a stent placed. He was started on Plavix due to stent and for left-sided numbness he was experiencing. MRI was performed for concern of stroke at that time, MRI was negative. However, he should benefit from Plavix if these were related to the TIA event. In regard to his diabetes, his blood sugars are running 100s to 200s, and A1c of 7.9. For his diabetes uncontrolled outpatient, he was continued on home medications and follow up with his primary care doctor for this. In regard to his hypothyroidism, hyperlipidemia, and hypertension, he was continued on home medications and these were controlled throughout course of hospitalization. DISPOSITION: Stable. DISCHARGE INSTRUCTIONS: 1. Location: Home. 2. Diet: Heart healthy. 3. Activity: Cardiopulmonary restrictions. 4. Follow up with PCP. Previously follows with Dr. Amezcua, however he retired. Given information for our clinic at [facility]. Follow up with Dr. Marcos within 3 weeks. Job ID: [id number] [facility]
== END 2019-05-08 14:47 | disposition home or self-care (01) | DRG 247 ==
LOC: ERS 14:31 → 2SW 16:29 → OBSVTOIN 16:29
PROVIDERS: ADMIT Family Medicine; ATTEND Family Medicine
PROC: 027034Z Dilation of Coronary Artery, One Artery with Drug-eluting Intraluminal Device, Percutaneous Approach (ICD-10-PCS; principal; 2019-05-07)
PROC: 4A023N7 Measurement of Cardiac Sampling and Pressure, Left Heart, Percutaneous Approach (ICD-10-PCS; 2019-05-07)
PROC: B2111ZZ Fluoroscopy of Multiple Coronary Arteries using Low Osmolar Contrast (ICD-10-PCS; 2019-05-07)
DX: I25.10 Atherosclerotic heart disease of native coronary artery without angina pectoris (principal); I50.32 Chronic diastolic (congestive) heart failure; R20.0 Anesthesia of skin; I11.0 Hypertensive heart disease with heart failure; E03.9 Hypothyroidism, unspecified; E11.9 Type 2 diabetes mellitus without complications; E78.5 Hyperlipidemia, unspecified; F17.200 Nicotine dependence, unspecified, uncomplicated; Z86.73 Personal history of transient ischemic attack (TIA), and cerebral infarction without residual deficits; Z79.899 Other long term (current) drug therapy; Z79.84 Long term (current) use of oral hypoglycemic drugs; Z79.02 Long term (current) use of antithrombotics/antiplatelets
CPT/HCPCS: 36415; 36416; 70496; 70498; 70551; 71045; 80053; 80061; 83036; 83735; 84100; 84443; 84484; 85025; 85347; 85610; 85730; 92928; 93005; 93010; 93306; 93454; 93798; 94760; 99152; 99153; C1769; C1874; C9600; J1644; J1650; J2001; J2250; J3010; Q9967

== ENCOUNTER 2020-01-08 12:00 | Emergency (ER) | payer OTHER ==
[2020-01-08] MEDS ORDERED: Fluorescein Opthalmic Strip ONE (12:21)
[2020-01-08] MEDS ORDERED: Proparacaine 0.5% Opth 15 ML BOT ONE (12:23)
== END 2020-01-08 12:45 | disposition home or self-care (01) ==
LOC: ERS 12:00
DX: S05.01XA Injury of conjunctiva and corneal abrasion without foreign body, right eye, initial encounter (principal); H10.9 Unspecified conjunctivitis; E11.9 Type 2 diabetes mellitus without complications; E78.5 Hyperlipidemia, unspecified; I10 Essential (primary) hypertension; F17.210 Nicotine dependence, cigarettes, uncomplicated; Z79.899 Other long term (current) drug therapy; Z79.82 Long term (current) use of aspirin; Z79.84 Long term (current) use of oral hypoglycemic drugs; X58.XXXA Exposure to other specified factors, initial encounter
CPT/HCPCS: 99283